=== PATIENT | female | born 1945 | race African-American/Black ===

== ENCOUNTER 2025-05-12 13:40 | Emergency (ER) | payer MEDICARE, OTHER ==
[~2025-05-12] VITALS: Ht 157.5 cm; Wt 56.7 kg
[~2025-05-12 13:40] MED LIST: ALBU4TAB6 MT; APIX5TAB4 PO; ATEN-42 MT; ATOR10TA MT; FAMO-135 MT; FURO-152 MT; GLIP5TAB22 MT; HYDR-2988 MT; LEVO13CA; NIFE10CA59 MT; SERT20OR6 MT; SODI325T MT
[2025-05-12 13:42] VITALS: O2SAT 94
[2025-05-12 15:02] VITALS: BP 132/72; PULSE 100; RESP 16; TEMP 36.8; O2SAT 97
== END 2025-05-12 15:04 | disposition left against medical advice (07) ==
LOC: ER 14:27
DX: R07.9 Chest pain, unspecified (principal); J44.9 Chronic obstructive pulmonary disease, unspecified; E11.22 Type 2 diabetes mellitus with diabetic chronic kidney disease; N18.6 End stage renal disease; Z88.5 Allergy status to narcotic agent; Z88.6 Allergy status to analgesic agent; Z79.899 Other long term (current) drug therapy
CPT/HCPCS: 93005; 99283